=== PATIENT | male | born 1960 | race Caucasian/White ===

== ENCOUNTER 2017-10-08 09:15 | Emergency (ER) | payer OTHER ==
[2017-10-08 09:39] VITALS: BP 138/87; PULSE 60; TEMP 98.4; BMI 30.4
[2017-10-08] MEDS ORDERED: KETOROLAC TROMETHAMINE 60 MG/2 ML VIAL IM ONE (10:09)
[2017-10-08 10:19] LABS: URINE APPEARANCE CLEAR; URINE BILIRUBIN NEGATIVE (NEGATIVE); URINE BLOOD NEGATIVE (NEGATIVE); URINE COLOR YELLOW; URINE GLUCOSE (UA) NEGATIVE (NEGATIVE); URINE KETONE NEGATIVE (NEGATIVE); URINE LEUK ESTERASE NEGATIVE (NEGATIVE); URINE NITRITE NEGATIVE (NEGATIVE); URINE PROTEIN NEGATIVE (NEGATIVE); URINE UROBILINOGEN NEGATIVE mg/dL (0.2-1.0)
--- NOTE | 2017-10-08 10:44 | PDOC ---
History of Present Illness - General Chief Complaint: Back Pain Stated Complaint: Low back pain Time Seen by Provider: 10/08/17 09:44 History Source: Patient Exam Limitations: No Limitations - History of Present Illness Initial Comments: 10/08/17 10:26 56 yr male pulled low back 4 days ago moving a lawnmower, slipped on ice. pt did not fall. pt denies abd pain no numbness or tingling, no urinary or bowel dyscomfort. no pmhx. Past History - Past Medical History Allergies/Adverse Reactions: Allergies Allergy/AdvReac Type Severity Reaction Status Date / Time No Known Allergies Allergy Verified 10/08/17 09:39 Home Medications: Ambulatory Orders Cyclobenzaprine HCl [Flexeril -] 10 mg PO TID PRN #21 tablet 10/08/17 Ibuprofen 800 mg PO TID PRN #20 tablet 10/08/17 COPD: No Kidney Stones: Yes - Immunization History Immunization Up to Date: No - Suicide/Smoking/Psychosocial Hx Smoking History: Never smoked Have you smoked in the past 12 months: Yes Number of Cigarettes Smoked Daily: 0 Information on smoking cessation initiated: No Hx Alcohol Use: Yes (Marijuana) Drug/Substance Use Hx: No Substance Use Type: Alcohol *Physical Exam - Vital Signs Last Vital Signs Temp Pulse Resp BP Pulse Ox 98.4 F 60 18 138/87 100 10/08/17 09:36 10/08/17 09:36 10/08/17 09:36 10/08/17 09:36 10/08/17 09:36 - Physical Exam General Appearance: Yes: Nourished, Appropriately Dressed HEENT: positive: EOMI, HENOK Neck: positive: Supple Respiratory/Chest: positive: Lungs Clear, Normal Breath Sounds Cardiovascular: positive: Regular Rhythm, Regular Rate Gastrointestinal/Abdominal: positive: Normal Bowel Sounds, Soft. negative: Tender Male Genitalia: positive: normal genitalia. negative: normal prostate, discharge, testicular tenderness, testicular mass, CVAT Rectal Exam: positive: deferred Lymphatic: negative: Adenopathy Musculoskeletal: positive: Normal Inspection Extremity: positive: Normal Capillary Refill, Normal Inspection, Normal Range of Motion ED Treatment Course - ADDITIONAL ORDERS Additional order review: Laboratory Results 10/08/17 10:06 Urine Color Yellow Urine Appearance Clear Urine pH 5.0 Ur Specific Murphy 1.021 Urine Protein Negative Urine Glucose (UA) Negative Urine Ketones Negative Urine Blood Negative Urine Nitrite Negative Urine Bilirubin Negative Urine Urobilinogen Negative Ur Leukocyte Esterase Negative - Medications Given in the ED: ED Medications Discontinued Medications Generic Name Dose Route Start Last Admin Trade Name Debora PRN Reason Stop Dose Admin Ketorolac Tromethamine 60 mg 10/08/17 10:09 10/08/17 10:12 Toradol Injection - IM 10/08/17 10:10 60 mg ONCE ONE Administration Medical Decision Making - Medical Decision Making 10/08/17 10:27 cc: acute low back pain radiates to right buttock pain with SLR right side 10/08/17 11:09 pt ambulatory with steady gait, states some relief with toradol dc inst given and verbally discussed with pt and his . pt agrees with the plan of care all questions asked and answered *DC/Admit/Observation/Transfer Diagnosis at time of Disposition: Acute low back pain due to trauma - Discharge Dispostion Disposition: HOME Condition at time of disposition: Improved - Prescriptions Prescriptions: Cyclobenzaprine HCl [Flexeril -] 10 mg PO TID PRN #21 tablet PRN Reason: Muscle Spasms Ibuprofen 800 mg PO TID PRN #20 tablet PRN Reason: Back Pain - Referrals Referrals: Caden Pinedo MD [Primary Care Provider] - Ray Pelaez MD [Staff Physician] - - Patient Instructions Additional Instructions: please make a follow up appointment with your doctor for 24-48hrs follow with the orthopedist if back pain persists or worsens take flexeril as directed for muscle spasm take ibuprofen 800mg every 8hrs for pain as needed avoid heavy lifting or bending apply warm heating pad, ICY HOT topical rub or ICY HOT back patches to the area of pain - Post Discharge Activity Forms/Work/School Notes: Back to Work
== END 2017-10-08 11:17 | disposition home or self-care (01) ==
LOC: JERFT 09:15
PROC: 3E0233Z Introduction of Anti-inflammatory into Muscle, Percutaneous Approach (ICD-10-PCS; principal; 2017-10-08)
DX: S39.82XA Other specified injuries of lower back, initial encounter (principal); W00.2XXA Other fall from one level to another due to ice and snow, initial encounter; Y93.89 Activity, other specified; Y92.69 Other specified industrial and construction area as the place of occurrence of the external cause; Y99.0 Civilian activity done for income or pay
CPT/HCPCS: 72100-TC; 81003; 87086; 99281-25

== ENCOUNTER 2023-10-18 13:09 | Emergency (ER) | payer OTHER ==
[2023-10-18 13:31] VITALS: BP 113/80; PULSE 69; RESP 17; TEMP 98; BMI 29.6
== END 2023-10-18 17:23 | disposition home or self-care (01) ==
LOC: JER 13:09
DX: K92.1 Melena (principal); R19.7 Diarrhea, unspecified; K62.5 Hemorrhage of anus and rectum
CPT/HCPCS: 71046-TC-FY; 82272; 99284-25